=== PATIENT | female | born 1950 | race Caucasian/White ===

== ENCOUNTER 2016-08-17 20:47 | Emergency (ER) | payer OTHER ==
[2016-08-17 21:19] VITALS: BP 110/82; PULSE 88; RESP 18; TEMP 99.3
--- NOTE | 2016-08-17 21:35 | UCPHY ---
H & P Time Seen by Provider: 08/17/16 21:19 Patient Type: New Smoking Status: Never smoked Constitutional: Initial Vital Signs Temperature (C) 37.4 C 08/17/16 21:15 Heart Rate 88 08/17/16 21:15 Respiratory Rate 18 08/17/16 21:15 Blood Pressure 110/82 H 08/17/16 21:15 O2 Sat (%) 93 08/17/16 21:15 O2 Delivery Mode Room Air Allergies/Adverse Reactions: No Known Allergies Allergy (Unverified 08/17/16 21:14) Home Medications: Medication Instructions Recorded [place] Thyroid 08/17/16 Medical Decision Making Differential Diagnosis: I believe that this patient has a viral syndrome that antibiotics and further investigation is not indicated. Departure - Departure Disposition: Home, Routine, Self-Care Clinical Impression: Upper respiratory infection Qualifiers: URI type: unspecified URI Qualified Code(s): J06.9 - Acute upper respiratory infection, unspecified Acute bronchitis Qualifiers: Bronchitis organism: unspecified organism Qualified Code(s): J20.9 - Acute bronchitis, unspecified Condition: Good Instructions: Acute Bronchitis (ED), Upper Respiratory Infection (ED) Additional Instructions: If your symptoms have not improved in 5 or 6 days or if they have not resolved in 10 days you should be re-evaluated. Cause for concern would be temperature greater than 101 degrees, chest pain or shortness of breath or any other symptoms that are worrisome to you. Keep herself well hydrated but do not force herself to eat. Limit her activities Adult Pain & Fever Control: We recommend Acetaminophen (Tylenol) and Ibuprofen (Motrin, Advil) for pain and fever control. When fever is high or pain severe, both drugs can be used at the same time, but at different intervals. Please note the time differences. Your dose is: Acetaminophen [650]mg every 4 to 6 hours ibuprofen [600]mg every [6] hours with food OR naproxen Sodium (Aleve) [440]mg every 12 hours. Note: do not take Acetaminophen with Hydrocodone (Vicodin, Lortab) or Oxycodone (Percocet). These medications also contain Acetaminophen. No more than 3000 mg of Acetaminophen should be taken in 24 hours (for an adult) . The maximal dose of ibuprofen that it is safe in a 24-hour period is 2400 mg. You may take 400 mg every 4 hours, 600 mg every 6 hours or 800 mg every 8 hours safely. Referrals: Dania Scott MD [Primary Care Provider] - As per Instructions - PQRS PQRS Measurement: Not applicable
[2016-08-17 22:03] VITALS: O2SAT 96
== END 2016-08-17 21:51 | disposition home or self-care (01) ==
LOC: CED 20:47
DX: J20.9 Acute bronchitis, unspecified (principal)
CPT/HCPCS: 87400-PO; G0463-PO

== ENCOUNTER 2016-08-22 20:05 | Emergency (ER) | payer OTHER ==
[2016-08-22 22:01] VITALS: RESP 18; O2SAT 95
[2016-08-22] MEDS ORDERED: DOXYCYCLINE 100 MG PREPACK#2 BTL TAKEHOME ONE (22:05)
[2016-08-22] MEDS ORDERED: ALBUTEROL INH PREPACK MDI TAKEHOME ONE (22:06)
--- NOTE | 2016-08-22 22:09 | UCPHY ---
H & P Time Seen by Provider: 08/22/16 21:06 Patient Type: Established HPI/ROS: This patient has 2 complaints 1-worsening cough after being seen here diagnosed with URI 5 days ago. She also reports a right proximal medial thigh cyst that his enlarged to 3 times its previous size is associated with moderate discomfort now. She explains that with her URI she had no associated fevers but this morning she awakened feeling mild fatigue, nausea, mild frontal headache subjective fevers and worsening of her dry cough. ROS: No high fevers or chills. She does have mild fatigue today. HEENT: No throat pain no ear pain. Mild frontal headache is improving this afternoon evening. Pulmonary: No pleuritic pain or respiratory distress. Cardiovascular : No complaints GI complaint: Vomited once this morning but tolerated p.o. intake since then . No hematemesis. : No complaints integumentary: As per HPI. 10 point ROS is otherwise negative Past Medical/Surgical History: Hypothyroid Smoking Status: Never smoked Physical Exam: Physical Exam Vital signs are normal. General: No acute distress HEENT: Nose: Clear discharge bilaterally. No sinus tenderness to percussion. Ears: External canals and tympanic membranes are clear with no erythema or abnormal findings bilaterally. Oropharynx: No erythema or exudates. No dysphonia. No drooling or stridor. Eyes: Pupils equal and react to light. Extraocular motions are intact. Lungs: Minimal expiratory wheeze only with deep breath or cough. No rales or rhonchi. Cardiac: Regular rate and rhythm with no murmur gallop or rub Skin: No rash or pallor. She has a 2 cm diameter fluctuant erythematous abscess of the right medial upper thigh there is associated tenderness. Mild erythema surrounds this in the adjacent 0.5 cm or so. Neuro: Alert with no focal deficits noted. Initial differential diagnosis: Viral bronchitis versus bacterial bronchitis, infected sebaceous cysts, MRSA, Constitutional: Initial Vital Signs Temperature (C) 37.7 C 08/22/16 20:50 Heart Rate 87 08/22/16 20:50 Respiratory Rate 20 08/22/16 20:50 Blood Pressure 112/76 08/22/16 20:50 O2 Sat (%) 96 08/22/16 20:50 O2 Delivery Mode Room Air Allergies/Adverse Reactions: No Known Allergies Allergy (Unverified 08/17/16 21:14) Home Medications: Medication Instructions Recorded [place] Thyroid 08/17/16 CIMETIDINE 08/22/16 Doxycycline Hyclate 100 mg PO BID #18 capsule 08/22/16 Naproxen 08/22/16 MDM/Departure - [facility] Procedures: I&D abscess: After verbal consent using chlorhexidine scrub and sterile technique, anesthesia with 1% plain lidocaine, sodium bicarb buffer: 27 gauge needle-2 mL with good effect, 11. Scalpel blade and made a small T-shaped incision with release of purulent material sent for culture. Massage the area with cheesy like sebaceous discharge. There is a small cavity few mm in size left with no further purulence after massage. I irrigated the cavity with 10 cc of saline with 22 gauge angiocatheter pressure. A dressing was then placed She tolerated this well. There were no complications. Medications Given: Discontinued Medications Albuterol Sulfate (Proventil Inh Prepack) 1 mdi TAKEHOME EDNOW ONE Stop: 08/22/16 22:07 Last Admin: 08/22/16 22:25 Dose: 1 mdi Doxycycline Hyclate (Vibramycin 100 Mg Prepack#2) 1 btl TAKEHOME EDNOW ONE Stop: 08/22/16 22:06 Last Admin: 08/22/16 22:24 Dose: 1 btl ED Course/Re-evaluation: Patient is given a 1st dose of doxycycline here to cover infected sebaceous cyst with localized cellulitis and potential bacterial bronchitis. She is also discharged with an albuterol inhaler with spacer - Depart Disposition: Home, Routine, Self-Care Clinical Impression: Infected sebaceous cyst, Bronchitis Condition: Good Instructions: Acute Bronchitis (ED), Abscess (ED) Additional Instructions: Diagnoses: 1. Infected sebaceous cyst of thigh-drained 2. Bronchitis Plan: Humidifier Albuterol inhaler with spacer for cough, wheeze or shortness of breath Doxycycline antibiotic Wear sunscreen on this is only his son sensitive Take a probiotic or yogurt while on this to prevent diarrhea. Return for any significant worsening despite the treatment plan Prescriptions: Doxycycline Hyclate 100 mg PO BID #18 capsule Referrals: NONE *PRIMARY CARE P,. [Primary Care Provider] - As per Instructions - PQRS PQRS Measurement: 134: Depression screening and followup, PRIME MD-PHQ2 (12 years and older) Over the last 2 weeks, how often have you been bothered by any of the following problems? 1. Feeling down, depressed, or hopeless? 2. Little interest or pleasure in doing things? Patient answered no to both 1 and 2 130: Documentation of medications. Reviewed all patient medications, doses, route and frequency. 226: Do you smoke? [No.] 47: 65 and older: Advanced care planning. Patient designates surrogate decision maker as spouse 51: 18 years old and older with diagnosis of COPD, spirometry performance. NA 52: 18 years old and older with COPD and symptoms of COPD or FEV1<60% predicted prescribed a B Agonist. NA
[2016-08-22] MEDS ORDERED: BACITRACIN OINTMENT 1 PACKET TP ONE (22:10)
[2016-08-22 22:32] VITALS: BP 125/72; PULSE 82; TEMP 99.1
== END 2016-08-22 22:32 | disposition home or self-care (01) ==
LOC: CED 20:05
PROC: 0H9HXZX Drainage of Right Upper Leg Skin, External Approach, Diagnostic (ICD-10-PCS; principal; 2016-08-22)
DX: J20.9 Acute bronchitis, unspecified (principal); L72.3 Sebaceous cyst; E03.9 Hypothyroidism, unspecified
CPT/HCPCS: 99214-PO; G0463-PO